=== PATIENT | male | born 1970 | race Caucasian/White ===

== ENCOUNTER → 2017-09-09 | Outpatient (CLI) | payer OTHER ==
[~2017-09-09] MED LIST: AMLODIPINE BESY10 MG PO; ATORVASTATIN CA40 MG PO; CADUET 10 MG-41 EACH PO; METAMUCIL1 EAC1 PO; MULTIVITAMINS PO
== END ==
LOC: ULTRA 07:17
DX: K76.0 Fatty (change of) liver, not elsewhere classified (principal); K82.4 Cholesterolosis of gallbladder; R94.5 Abnormal results of liver function studies

== ENCOUNTER 2017-10-10 05:26 | Observation (INO) | payer OTHER ==
[~2017-10-10] VITALS: Ht 170.2 cm; Wt 108.0 kg
--- NOTE | ~2017-10-10 | H ---
[facility] [place] [address] HISTORY AND PHYSICAL Name: JOHN MOY Room #: 411-P [facility] Tom Jay#: [id number] Admission: 10/10/17 Attend Phys: Domenico Arvizu MD Discharge: 10/11/17 Date of : 72 Report #: [id number] THIS REPORT FOR: //name// CC: Marshal López DATE OF SERVICE: 10/10/2017 PREOPERATIVE DIAGNOSIS: 1. Cholecystitis with cholesterolosis. 2. Hypertension. 3. Elevated cholesterol and lipids. 4. History of deep venous thrombosis/pulmonary embolism. HISTORY OF PRESENT ILLNESS: The patient is a 47-year-old who has been complaining of a dull pain in the right upper quadrant. It has been going on for about a month. Initially, he thought that this was related to a pulled muscle when he was playing ball with his children. The patient was found to have elevated liver function test on yearly exam. The patient does have some evidence of fatty liver. The enzymes were slightly elevated about a year ago, but now they are about 3 times more elevated. The liver function test does show predominantly elevation of SGPT. Normal alkaline phosphatase, normal bilirubin and SGOT is moderately elevated. SGOT in the 80-90 range and the SGPT 180. The patient is able to eat. The patient does complain of right upper quadrant pain after eating pizza. The patient denies gas or bloating or nausea. No history of indigestion. The patient had an ultrasound that showed a polyp that measured 4 mm. This probably represents cholesterolosis. The patient's daughter recently had her gallbladder removed. She apparently did not have stones, but did have a sick gallbladder. The patient is brought in for treatment of cholecystitis and elevated liver function test. PAST MEDICAL HISTORY: He has a history of DVT and PE after traveling from [place]. The patient has history high blood pressure, history of elevated cholesterol, history of hemorrhoid. ALLERGIES: THE PATIENT HAS SEASONAL ALLERGIES. HISTORY OF REACTION TO OXYCODONE. MEDICATIONS: Amlodipine 10 mg and Lipitor 40 mg. Recently, he did hold his Lipitor to see if the liver function would change. PAST SURGICAL HISTORY: Left knee scope in 1988, left shoulder repair in 2016. FAMILY HISTORY: High blood pressure, elevated cholesterol. Mother's side with diabetes. [address] [address] HISTORY AND PHYSICAL Name: JOHN MOY Room #: 411-P [facility] Tom Jay#: [id number] Admission: 10/10/17 Attend Phys: Domenico Arvizu MD Discharge: 10/11/17 Date of : 72 Report #: [id number] SOCIAL HISTORY: The patient works as an career development engineer. Does not smoke. The patient does drink wine every other day or so. REVIEW OF SYSTEMS: No headache, blurred vision, chest pain, shortness of breath. No muscle weakness or numbness. PHYSICAL EXAMINATION: GENERAL: The patient is well-nourished male, in no acute distress. HEENT: Pupils react to light. Extraocular muscles are intact. Sclerae nonicteric. Pupils react to light. Oropharynx clear. NECK: Soft and supple, no masses. LUNGS: Clear to auscultation. No wheezes, rales. HEART: Regular rate and rhythm. No murmur or gallop. ABDOMEN: Soft, nondistended, nontender. No mass. Normal bowel sounds. No ascites. EXTREMITIES: No cyanosis, clubbing or edema. IMPRESSION: The patient is a 47-year-old with right upper quadrant pain that is a dull type pain. This has been noticed for about a month. The patient's gallbladder is abnormal on ultrasound with an echogenic focus that is described as a polyp. This probably represents cholesterol polyp. Liver is diffusely echogenic consistent with fatty infiltration. His liver function test is elevated. The liver function seems to be more biliary tract with SGPT elevation more so than the SGOT. The patient is recommended for treatment of his symptoms and also of the right upper quadrant pain, which is consistent with gallbladder disease, the patient is recommended to have gallbladder removed. Laparoscopic cholecystectomy was discussed. The patient wants to proceed. The procedure is discussed in detail. Risk of bleeding and infection were discussed. The patient does have a history of blood clot. I recommend that he be hospitalized afterwards and stay overnight that way nighttime after surgery, he can get started on some Lovenox and probably another dose of Lovenox next morning. He does have a history of deep venous thrombosis and pulmonary embolism secondary to the long [place] flight. The patient understands my recommendation and wishes to proceed. Risk of procedure including bleeding, infection, and common bile duct injury were discussed. Risk of blood clots discussed. <ELECTRONICALLY SIGNED> By: Domenico Arvizu MD 10/15/17 1310 28 00 Domenico Arvizu MD /nt
--- NOTE | ~2017-10-10 | O ---
[facility] [place] [address] OPERATIVE REPORT Name: JOHN MOY Room #: 411-P [facility] Tom Jay#: [id number] Admission: 10/10/17 Attend Phys: Domenico Arvizu MD Discharge: 10/11/17 Date of : 72 Report #: [id number] THIS REPORT FOR: //name// CC: Marshal Lawrence DO Domenico Arvizu PREOPERATIVE DIAGNOSES: Cholecystitis with cholesterolosis, abdominal pain, right upper quadrant and elevated liver function test. POSTOPERATIVE DIAGNOSES: Cholecystitis with cholesterolosis, abdominal pain, right upper quadrant and elevated liver function test. PROCEDURE PERFORMED: Laparoscopic cholecystectomy with attempted cholangiogram. FINDINGS: The cholangiogram was unable to be performed due to a stenotic cystic duct. The gallbladder did contain cholesterolosis. There were 2 mucoid appearing material in the bile which likely represents cholesterolosis. SPECIMEN: Sent to Pathology. ESTIMATED BLOOD LOSS: 5 mL. SURGEON: Domenico Arvizu MD PROCEDURE NOTE: With the patient under general anesthesia, IV antibiotic was administered. The abdomen was prepped and draped in sterile fashion. A curved incision was made infraumbilically. Fascia identified. Fascia was then grasped with hemostat. Fascia was then opened under visualization, 0 Vicryl suture placed on the fascia for retraction. Veress needle was then placed through peritoneum. Abdominal cavity was insufflated with CO2. After creating pneumoperitoneum pressure of 15, 11-mm trocar was placed into the pneumoperitoneum, no harm to underlying tissue. The patient was then placed in a reverse Trendelenburg position, right side tilted up. Two 5 mm trocars were placed in the right upper quadrant, one in the anterior axillary line, the other one in the midclavicular line and then a third 5 mm trocar was placed in the right epigastrium. The liver did have a fatty appearance, but there was no evidence of cirrhosis or any inflammation. The gallbladder was lifted over the liver. There is fatty tissue over the proximal part of the gallbladder and the cystic duct. This fatty tissue was dissected free, starting laterally. The dissection was then carried medially in the triangle of Calot. The cystic duct was isolated. Cystic artery was also visualized. Common duct was more felt to be more medial and posteriorly located. This was covered by fair amount of fat that I could not see it. The gallbladder cystic duct junction was identified. Clips were placed here. Opening was made in the cystic duct and the initial opening made distally did not show much of the lumen. A second opening was made just little bit proximal to it and again there was not much of movement present. [address] [address] OPERATIVE REPORT Name: JOHN MOY Joshua Room #: [facility] Tom Jay#: [id number] Admission: 10/10/17 Attend Phys: Domenico Arvizu MD Discharge: 10/11/17 Date of : 72 Report #: [id number] There is definitely stenosis or narrowing of the cystic duct, likely related to the gallbladder disease. I did put a catheter in, but there was no way to catheter fit. The proximal cystic duct was then clipped. The cystic duct was then divided. The artery was then identified. This was clipped x 2 proximally, 1 distally and then divided. Gallbladder was free from the liver bed. A small opening was made in the gallbladder. Bile came out and this was suctioned out. The bile looked fairly normal. The gallbladder was then freed rest of the way and gallbladder was removed through the infraumbilical 11 mm trocar site. A 5 mm cannula was placed in the epigastric trocar to allow this maneuver. Gallbladder was opened off the field. There was still a little bit of bile in the gallbladder and within it there were 2 mucoid looking material that looked like 4 and 5 mm. This is what ultrasound saw as polyp and there were actually 2 materials, likely representing cholesterolosis. It was not yellow looking. There are some yellow specks in the gallbladder consistent with cholesterolosis. Liver bed was checked, hemostasis was excellent. Irrigation was performed. Irrigation was aspirated out. The patient was then flattened out. CO2 was then evacuated. Trocars then removed. The fascia defect infraumbilically was then closed with [id number] 0 Vicryl x 2. Skin was irrigated, closed with 5-0 PDS. Steri-Strip, Band-Aids applied. The patient was awakened and taken to recovery and tolerated procedure well. The patient did have a repeat liver function tests earlier today and the enzyme elevation is mostly SGPT elevation of 155. AST and ALT was only 55, normal amylase, normal alkaline phosphatase and normal bilirubin. This could be from the gallbladder being irritated. The result of the surgery was discussed with his . <ELECTRONICALLY SIGNED> By: Domenico Arvizu MD 10/15/17 1310 [id number] Domenico Arvizu MD /nt
--- NOTE | ~2017-10-10 | EKG ---
[address] [address] ELECTROCARDIOGRAM REPORT Name: JOHN MOY Room #: 411-[facility].#: [id number] Admission: 10/10/17 Attend Phys: Domenico Arvizu MD Discharge: Date of : 72 Report #: [id number] THIS REPORT FOR: //name// [facility] Test Date: 2017-10-10 Test Time: 08:57:02 Pat Name: JOHN MOY Department: Room: 411 Gender: M [employer] Installer: PINA : 1970 Requested By: Domenico Arvizu Order Number: [id number] MD: Jabari Michelle Measurements Intervals [place] Rate: 77 P: 24 MT: 161 QRS: 30 QRSD: 80 T: 11 QT: 350 QTc: 397 Interpretive Statements Sinus rhythm Baseline wander in lead(s) II No previous ECG available for comparison Electronically Signed On 10-11-2017 8:25:21 CDT by Jabari Michelle [email or web address] <ELECTRONICALLY SIGNED> By: Jabari Michelle MD, [facility] 10/11/17 0825 [id number] Jabari Michelle MD, FACC /EPI
[2017-10-10 08:53] LABS: CALCIUM 9.4 mg/dL (8.5-10.1); CREATININE 1.4 mg/dL (0.7-1.3); POTASSIUM 4.5 mmol/L (3.5-5.1)
[2017-10-10 08:59] LABS: ALBUMIN 3.9 g/dL (3.4-5.0); TOTAL BILIRUBIN 0.5 mg/dL (<0.1-1.0)
[2017-10-10 09:57] VITALS: BP 150/100
[2017-10-10 10:15] LABS: DIRECT BILIRUBIN 0.1 mg/dL (<0.1-0.3)
[2017-10-10 13:32] VITALS: BP 140/80
[2017-10-10 17:00] VITALS: BP 147/94
[2017-10-10 20:09] VITALS: BP 148/87
[2017-10-11 04:00] VITALS: BP 124/76
[2017-10-11 08:55] VITALS: BP 142/93
[2017-10-11 10:04] VITALS: BP 142/93
== END 2017-10-11 10:30 | disposition home or self-care (01) ==
LOC: OR 05:26 → TBA 05:27 → OR 10:11 → 4N 11:23 → OR 11:23 → 4N 11:23 → OR 13:43 → 4N 10-11 10:30
PROVIDERS: Surgery
DX: K81.9 Cholecystitis, unspecified (principal); R79.89 Other specified abnormal findings of blood chemistry; I10 Essential (primary) hypertension; E78.00 Pure hypercholesterolemia, unspecified; Z86.718 Personal history of other venous thrombosis and embolism; Z86.711 Personal history of pulmonary embolism
CPT/HCPCS: 50010; 50101; 50555; 50558; 51489; 53307; 53310; 55245; 56462; 56525; 56526; 62110; 62900; 70005

== ENCOUNTER → 2018-07-15 | Outpatient (CLI) | payer OTHER | LOC: CAT 13:26 | DX: Z13.6 Encounter for screening for cardiovascular disorders (principal); E78.00 Pure hypercholesterolemia, unspecified; Z82.49 Family history of ischemic heart disease and other diseases of the circulatory system ==